=== PATIENT | female | born 1945 | race Caucasian/White ===

== ENCOUNTER 2017-01-29 23:35 | Emergency (ER) | payer OTHER ==
[~2017-01-29] VITALS: Wt 67.5 kg
[2017-01-30 00:24] LABS: URINE BLOOD (Dip) POC Negative (NEGATIVE)
[2017-01-30] MEDS ORDERED: FAMOTIDINE 20 MG INJ IV STA (00:24)
[2017-01-30] MEDS ORDERED: ONDANSETRON 4 MG INJ IV STA (00:24)
--- NOTE | 2017-01-30 00:27 | ERD ---
ER Documentation Chief Complaint Chief Complaint abdominal pain/vomiting/diarrhea x 1 day HPI Patient is a 71-year-old female who presents with sudden onset, intermittent, moderate vomiting and diarrhea for 1 day. She reports 2 episodes of vomiting and 12 episodes of greenish diarrhea. She denies dark stool or bloody emesis. She denies fever. She reports mild epigastric pain. This is similar to her previous gastritis. She denies back pain. She denies dysuria. She denies recent travel or eating undercooked foods. She denies sick contacts. ROS All systems reviewed and are negative except as per history of present illness. Medications Home Meds Active Scripts Famotidine* (Pepcid*) 20 Mg Tablet, 20 MG PO BID for 4 Days, TAB Prov:EDGAR NICHOLE MD 01/30/17 Ondansetron Hcl* (Zofran*) 4 Mg Tablet, 4 MG PO Q8H Y for NAUSEA AND/OR VOMITING , #12 TAB Prov:EDGAR NICHOLE MD 01/30/17 Allergies Allergies: Coded Allergies: No Known Drug Allergies (Verified Allergy, Unknown, 01/29/17) PMhx/Soc Past medical history: Diabetes mellitus, hypercholesterolemia, hypothyroidism, gastritis Past surgical history: Right knee replacement Social history: Denies tobacco or alcohol FmHx Family History: No coronary disease, No diabetes Physical Exam Vitals Vital Signs Date Time Temp Pulse Resp B/P Pulse Ox O2 Delivery O2 Flow Rate FiO2 01/30/17 03:14 72 18 116/56 98 Room Air 01/29/17 23:38 98.4 77 20 123/56 99 Physical Exam Const: Alert, no acute distress Head: Atraumatic Eyes: Normal Conjunctiva, No pallor, no icterus ENT: Normal External Ears, Nose and Mouth. Mucous membranes moist Neck: Full range of motion..~ No meningismus. Resp: Clear to auscultation bilaterally, No wheezes, no rales Cardio: Regular rate and rhythm, no murmurs Abd: Soft, non tender, non distended. Skin: No petechiae or rashes Ext: No cyanosis, or edema Neur: Awake and alert, Cranial nerves II through XII intact bilaterally, strength and sensation full in 4 extremities Psych: Normal Mood and Affect Result Diagram: 01/30/17 0015 01/30/17 0015 Results 24 hrs Laboratory Tests Test 01/30/17 00:15 01/30/17 00:22 White Blood Count 11.610^3/ul Red Blood Count 4.7110^6/ul Hemoglobin 13.1g/dl Hematocrit 40.1% Mean Corpuscular Volume 85.1fl Mean Corpuscular Hemoglobin 27.8pg Mean Corpuscular Hemoglobin Concent 32.7g/dl Red Cell Distribution Width 13.5% Platelet Count 40931^3/UL Mean Platelet Volume 9.5fl Neutrophils % 80.2% Lymphocytes % 8.7% Monocytes % 9.9% Eosinophils % 0.5% Basophils % 0.4% Nucleated Red Blood Cells % 0.0/100WBC Neutrophils # 9.310^3/ul Lymphocytes # 1.010^3/ul Monocytes # 1.110^3/ul Eosinophils # 0.110^3/ul Basophils # 0.110^3/ul Nucleated Red Blood Cells # 0.010^3/ul Urine Color YELLOW Urine Clarity CLEAR Urine pH 5.0 Urine Specific [place] 1.023 Urine Ketones NEGATIVEmg/dL Urine Nitrite NEGATIVEmg/dL Urine Bilirubin NEGATIVEmg/dL Urine Urobilinogen NEGATIVEmg/dL Urine Leukocyte Esterase 1+Tika/ul Urine Microscopic RBC 1/HPF Urine Microscopic WBC 4/HPF Urine Squamous Epithelial Cells FEW/HPF Urine Mucus FEW/HPF Urine Hemoglobin NEGATIVEmg/dL Urine Glucose NEGATIVEmg/dL Urine Total Protein NEGATIVEmg/dl Sodium Level 140mmol/L Potassium Level 4.3mmol/L Chloride Level 104mmol/L Carbon Dioxide Level 24mmol/L Anion Gap 16 Blood Urea Nitrogen 17mg/dl Creatinine 0.80mg/dl Glucose Level 146mg/dl Calcium Level 9.5mg/dl Total Bilirubin 0.5mg/dl Direct Bilirubin 0.00mg/dl Indirect Bilirubin 0.5mg/dl Aspartate Amino Transf (AST/SGOT) 22IU/L Alanine Aminotransferase (ALT/SGPT) 36IU/L Alkaline Phosphatase 109IU/L Total Protein 7.5g/dl Albumin 4.3g/dl Globulin 3.20g/dl Albumin/Globulin Ratio 1.34 Lipase 97U/L Bedside Urine pH (LAB) 5.5 Bedside Urine Protein (LAB) Negative Bedside Urine Glucose (UA) Negative Bedside Urine Ketones (LAB) Negative Bedside Urine Blood Negative Bedside Urine Nitrite (LAB) Negative Bedside Urine Leukocyte Esterase (L Trace Current Medications Medications (Trade) Dose Ordered Sig/Luis Alfredo Route PRN Reason Start Time Stop Time Status Last Admin Dose Admin Ondansetron HCl (Zofran Inj) 4 mg ONCE STAT IV 01/30/17 00:24 01/30/17 00:25 DC 01/30/17 00:37 Famotidine (Pepcid Iv) 20 mg ONCE STAT IV 01/30/17 00:24 01/30/17 00:25 DC 01/30/17 00:37 Procedures/MDM EKG read by me: Time 0030, rate 73 Rhythm: Normal sinus [place]: Normal Intervals: Normal ST-T waves: no ischemic changes Ectopy: No Q-waves: No Impression: No evidence of ischemia or arrhythmia MDM: Patient is a 71-year-old female who presents with 24 hours of vomiting progressing to diarrhea. There is no report of bloody or mucoid diarrhea. Has not had hematemesis. She has no evidence of electrolyte abnormality and has a relatively benign abdominal exam. She has mild leukocytosis, but no other significant lab abnormalities. She was given a dose of Pepcid, and on reassessment states that she feels better. She is tolerating oral intake without vomiting. She has stable vital signs and a benign repeat abdominal examination. She is counseled on oral hydration, bland diet, and return precautions. She will be given a prescription for Pepcid and Zofran. She did report mild epigastric discomfort, but does not have findings on exam that are suggestive of cholecystitis. Her lipase is not elevated. Her symptoms improved with Pepcid. I suspect mild gastric irritation. Departure Diagnosis: Primary Impression: Gastroenteritis Condition: EDGAR Ulloa MD Jan 30, 2017 00:27
[2017-01-30 00:40] LABS: BASOPHIL # 0.1 10^3/ul (0.0-0.1); BASOPHILS % 0.4 % (0.0-2.0); EOSINOPHILS # 0.1 10^3/ul (0.0-0.5); EOSINOPHILS % 0.5 % (0.0-7.0); HEMATOCRIT 40.1 % (37.0-47.0); HEMOGLOBIN 13.1 g/dl (12.0-16.0); LYMPHOCYTES % 8.7 % (15.0-51.0); MEAN CORPUSCULAR HEMOGLOBIN 27.8 pg (29.0-33.0); MEAN CORPUSCULAR HGB CONC 32.7 g/dl (32.0-37.0); MEAN CORPUSCULAR VOLUME 85.1 fl (82.0-101.0); MEAN PLATELET VOLUME 9.5 fl (7.4-10.4); MONOCYTE # 1.1 10^3/ul (0.3-0.9); MONOCYTES % 9.9 % (0.0-11.0); NEUTROPHIL # 9.3 10^3/ul (1.6-7.5); NEUTROPHILS % 80.2 % (39.0-77.0); PLATELET COUNT 349 10^3/UL (140-415); RED BLOOD COUNT 4.71 10^6/ul (4.20-5.40); RED CELL DISTRIBUTION WIDTH 13.5 % (11.5-14.5); WHITE BLOOD COUNT 11.6 10^3/ul (4.8-10.8)
[2017-01-30 01:00] LABS: ALBUMIN 4.3 g/dl (3.3-4.9); ALBUMIN/GLOBULIN RATIO 1.34; BILIRUBIN,INDIRECT 0.5 mg/dl (0-1.1); BILIRUBIN,TOTAL 0.5 mg/dl (0.2-1.3); CALCIUM 9.5 mg/dl (8.4-10.2); CREATININE 0.8 mg/dl (0.44-1.00); POTASSIUM 4.3 mmol/L (3.5-5.1); TOTAL PROTEIN 7.5 g/dl (6.1-8.1)
[2017-01-30 01:15] LABS: ADD UMIC YES; UR ASCORBIC ACID NEGATIVE (NEGATIVE); UR BILIRUBIN (Dip) NEGATIVE (NEGATIVE); UR BLOOD (Dip) NEGATIVE (NEGATIVE); UR CLARITY CLEAR (CLEAR); UR COLOR YELLOW (YELLOW); UR GLUCOSE (Dip) NEGATIVE (NEGATIVE); UR KETONES (Dip) NEGATIVE (NEGATIVE); UR LEUKOCYTE ESTERASE (Dip) 1+ Leu/ul (NEGATIVE); UR MUCUS FEW /HPF (NONE SEEN); UR NITRITE (Dip) NEGATIVE (NEGATIVE); UR RBC 1 /HPF (0-5); UR SPECIFIC GRAVITY (Dip) 1.023 (1.003-1.030); UR SQUAMOUS EPITHELIAL CELL FEW /HPF (FEW); UR TOTAL PROTEIN (Dip) NEGATIVE (NEGATIVE); UR UROBILINOGEN (Dip) NEGATIVE (NEGATIVE)
[2017-01-30] MEDS ORDERED: ONDA4TAB8 PO (03:03)
[2017-01-30] MEDS ORDERED: FAMO-96 PO (03:03)
[2017-01-30 03:14] VITALS: BP 116/56; PULSE 72; RESP 18
== END 2017-01-30 03:17 | disposition home or self-care (01) ==
LOC: E/R 23:35
DX: K52.9 Noninfective gastroenteritis and colitis, unspecified (principal); E11.9 Type 2 diabetes mellitus without complications; E03.9 Hypothyroidism, unspecified; R10.13 Epigastric pain; Z96.651 Presence of right artificial knee joint
CPT/HCPCS: 36415; 80053; 81001; 81003; 83690; 85025; 96374; 96375; 99284; J2405

== ENCOUNTER 2017-11-07 08:44 | Emergency (ER) | END 2017-11-07 09:39 | disposition home or self-care (01) ==